=== PATIENT | male | born 1980 | race Caucasian/White ===

== ENCOUNTER 2017-02-07 12:13 | Inpatient (IN) | payer BC, OTHER ==
[~2017-02-07] VITALS: Ht 182.9 cm; Wt 95.3 kg
[~2017-02-07 12:13] MED LIST: ACET-2605 PO; ASCO-382 PO; Baclofen PO; CALC-880 PO; CLON0.1T14 PO; DICY20TA28 PO; DIVA500T4 PO; FLUO20CA36 PO; GABA100C PO; Gabapentin PO; HYDR-3895 PO; IBUP-1482 PO; IRON18TA PO; Ibuprofen PO; METH28OI2 TOP; NAPR500T3 PO; NEOM28.3 TP; OMEG-8 PO; TRAZ-147 PO
[2017-02-07] MEDS ORDERED: MAGNESIUM HYDROXIDE 30 ML LIQUID UDC PO PRN (13:15)
[2017-02-07] MEDS ORDERED: LORAZEPAM 2 MG/1 ML VIAL IM PRN (13:15)
[2017-02-07] MEDS ORDERED: MIRALAX 17 GM POWD.PACK PO PRN (13:15)
[2017-02-07] MEDS ORDERED: LORAZEPAM 1 MG TABLET PO PRN ×2 (13:15)
[2017-02-07] MEDS ORDERED: LOPERAMIDE HCL 2 MG CAPSULE PO PRN ×2 (13:15)
[2017-02-07] MEDS ORDERED: ONDANSETRON 4 MG/2 ML VIAL IM PRN (13:15)
[2017-02-07] MEDS ORDERED: DICYCLOMINE HCL 20 MG TABLET PO PRN (13:15)
[2017-02-07] MEDS ORDERED: diphenhydrAMINE 50 MG CAPSULE PO PRN (13:15)
[2017-02-07] MEDS ORDERED: THIAMINE HCL 200 MG/2 ML VIAL IM ONE (13:15)
[2017-02-07] MEDS ORDERED: MAG HYDROX/AL HYDROX/SIMETH 30 ML LIQUID UDC PO PRN (13:15)
[2017-02-07] MEDS ORDERED: ONDANSETRON ODT 4 MG TAB.RAPDIS SL PRN (13:15)
[2017-02-07 13:30] VITALS: BP 139/101
--- NOTE | 2017-02-07 13:30 | NUR ---
Initial Assessment, Admission Pt is a 36 y/o male, NKA, Full Code, new admission here for Etoh r/t Vodka 1125mL/d for 3.5 months with last use fo 375mL this morning, Benzo r/t Ativan 4mg PO daily with last use this morning for 3.5 months, Methamphetamine "$20 worth" daily for 3-4 weeks with last use 2 days ago, Marijuana 1 joint daily with last use today, [place] 10/325 pill x 5 pills PO with the last use 2 days ago, Subutex unknown dose with last use 2 days ago. Pt has been using since he last d/c'd from here at [facility] in 2016. Pt denies going to the [facility] for internal MD, no psychologist and no psychiatrist. HHx: Pt denies smoking, Left Ankle fusion 06/2016 with Chronic Pain, Anxiety and Depression. Pt states that he had a seizure approx. 1 week ago r/t alcohol w/d where he woke up in [facility] (known locations at this time). Pt states that he is homeless. Pt states that he detoxed at a facility that he couldn't recall the name of it in [place] in 2015 and has 4 months of sobriety last year from 01/2016 to 04/2016. FHx is noted the same. Pt has home medications brought with the reconciliations updated. Features symmetrical, PERRLA 3mm, no dizziness noted. Pt denies chest pain, V/S stable except BP and HR are elevated. No SOB present. Pt c/o N/V/D today before admission. Pt denies dysuria. Skin is flushed, moist with mild tremors & intact. CIWA 14. T. 98.6 HR 106 RR 18 BP 139/101 SpO2 100% RA 7/10 Left BLE pain.
[2017-02-07] MEDS ORDERED: DOCU-25 PO (13:35)
[2017-02-07] MEDS ORDERED: CYCL-343 PO (13:35)
[2017-02-07] MEDS ORDERED: FLUO20CA36 PO (13:35)
[2017-02-07] MEDS ORDERED: PRAZ1CAP5 PO (13:35)
--- NOTE | 2017-02-07 14:00 | NUR ---
Refused Labs Pt is in room resting in bed very agitated and irritable and refused the organic lab worker Blood Draw at admission; I explained that it is required and the tech is professional and very good and can use a butter-fly needed if needed, yet the pt refused.
--- NOTE | 2017-02-07 14:40 | NUR ---
PRN Medication Administration-Ativan Pt is resting in bed, flushed, clammy, very irritable with grimacing face and very anxious with HR 109 and BP 139/101, pt c/o nausea, ab cramping, mild FANG, and diarrhea before admission CIWA 13; PRN Clonidine 0.1mg, Ativan 1mg, Bentyl 20mg, Zofran 4mg SL, Motrin 400mg and Imodium 4mg given as ordered. Will reassess in 1H.
[2017-02-07] MEDS: CLONIDINE HCL 0.1 MG TABLET PO PRN (14:43)
[2017-02-07] MEDS: IBUPROFEN 600 MG TABLET PO PRN (14:43)
[2017-02-07] MEDS: GABAPENTIN 300 MG CAPSULE PO SCH ×2 (14:54→20:03)
--- NOTE | 2017-02-07 15:45 | NUR ---
Reassessment Pt is in room asleep and no non-verbal s/sx of w/d present; PRN's Clonidine, Ativan, Imodium, Motrin and Zofran are effective. Will cont. to monitor the pt.
[2017-02-07 16:03] LABS: *AMPHETAMINE, URINE NEGATIVE (NEGATIVE); *BARBITURATE, URINE NEGATIVE (NEGATIVE); *CANNABINOID, URINE POSITIVE (NEGATIVE); *COCCAINE, URINE NEGATIVE (NEGATIVE); *OPIATE, URINE NEGATIVE (NEGATIVE); *PHENCYCLIDINE SCREEN,URINE NEGATIVE (NEGATIVE)
[2017-02-07 17:00] VITALS: BP 132/92
--- NOTE | 2017-02-07 18:41 | NUR ---
START OF SHIFT NOTE: Patient endorsed by day shift nurse in stable condition. Patient is a 36 year old male admitted to [facility] on 02/07/17 for Benzodiazepines, ETOH, and Opiate Dependence, placed on 5 Day Ativan Taper since 02/08/17. Patient tolerated well. NKA, Regular Diet, Full Code, Seizures and Fall Precautions. Patent reports History of Seizure "one week ago r/t withdrawal s/s". PMH: HTN, Anxiety, Depression, Substance Abuse, Left ankle infusion on 2015 with chronic pain. Patient reports that he is recently has "third time on detox/treatment". Previously, he has detox/treatment at "[place] [facility] in on August,". "[facility] one week ago r/t ETOH withdrawal". "[facility]" on November,". Substance Use History: Patient reports he used vodka " during last three and half months 1,125 ml every day. Last used 375 ml on 02/07/17 ". Ativan PO "4 mg every day during last three and half months. Last used 4 mg PO on 02/07/17". Methamphetamine PO "$20 dollars worth one day for 3-4 weeks. Last used 2 days ago, on 02/05/17". [place] PO " 10/325 mg pills x 5 pills every day. Last used 5 pills on 02/05/17". Marijuana "smoke 1 joint every day. Last used on 02/07/17 1 joint". Subutex PO " Occasional use unknown dose. Last used unknown dose 2 days ago, on 02/05/17. Upon endorsement, at 18:41, patient is in his room alert and oriented x4, speech is soft and clear. CIWA 9: Patient c/o anxiety, tremors, body aches, nervousness, agitation, headache, body aches, and sweats. Patient denies N/V, and diarrhea. Patient denies SI/HI. VS WNL. MRSA collected from both nares and sent to lab. Patient remains compliant with treatment plan, medications, and diet regimen. Patient unable attended groups activities r/t withdrawal s/s. Encourage to fluids intake, as tolerated. Breathing is even and unlabored. Patient denies chest pain and SOB. Lungs Sounds are clear bilaterally. Bowel Sounds are active in all 4 quadrants. Last bowel Movement was "today, in the morning". Skin is intake, warm and dry. All needs met. Safety measures in the place by hospital policy: bed in the lowest position, and locked, padded bed rails up x2. Will continue to monitor closely.
--- NOTE | 2017-02-07 18:41 | NUR ---
End of the Shift Report to the night nurse: Pt is new admission here for Etoh and Benzo r/t Ativan; 5 day Ativan taper starting 02/08/17 with PRN Ativan ordered and given at 1440 with CIWA 13-14. PRNs: Ativan 1mg Clonidine 0.1mg given for anxiety & BP 139/101,HR 109, Zofran, Motrin & Imodium 4 mg. HHx: Anxiety, Depression, Non-Smoker, Left LE infusion with Chronic Pain. V/S stable s/p Ativan given. Skin is intact. Last CIWA 4. Pt refused blood draw for labs so endorsed to night nurse to f/u with blood draw. Pt is homeless and was at [facility] last week so endorsed to night nurse for MRSA swab and seizure precautions.
[2017-02-07 20:00] VITALS: BP 141/104
--- NOTE | 2017-02-07 20:03 | NUR ---
PRN ATIVAN 2 MG 2 TABS PO ADMINISTRATION CIWA 16: Patient' anxious, agitated, obviously sweating, pt's nervousness, body aches, headache, stomach cramps, tremors, and restlessness. Patient denies N/V, and diarrhea. Doctor Jerman Kong MD aware. PRN Ativan PO 2 mg 2 tabs administrated as ordered with full glass of water. Patient tolerated well. Will reassess in one hour. All needs met. Safety measures in the place by hospital policy: Call light within reach, bed locked and in lowest position, padded rails up x2. Will continue to monitor closely.
--- NOTE | 2017-02-07 20:03 | NUR ---
PRN BENADRYL PO ADMINISTRATION Patient c/o insomnia and ask aid. Upon assessment, CIWA 16: Patient' anxious, agitated, obviously sweating, pt's nervousness, body aches, headache, stomach cramps, tremors, and restlessness. Patient denies N/V, and diarrhea. Doctor Jerman Kong MD aware for patient condition.PRN Benadryl PO and PRN Ativan PO 2 mg 2 tabs administrated as ordered with full glass of water. Patient tolerated well. Will reassess in one hour. All needs met. Safety measures in the place by hospital policy: Call light within reach, bed locked and in lowest position, padded rails up x2. Will continue to monitor closely.
[2017-02-07 20:30] VITALS: BP 138/89
--- NOTE | 2017-02-07 21:03 | NUR ---
RE - ASSESSMENT Patient sleeping. VS at 20:30: BP: 138/89, HR: 87, Room Air O2 Sat 97%. RR: 17, T: 98'1. Breathing is unlabored and even. PRN Ativan PO and PRN Benadryl PO were effective. All needs met. Safety measures in the place by hospital policy: bed in the lowest position, and locked, bed rails up x2. Will continue to monitor closely.
[2017-02-08] VITALS (7 sets, daily range): BP systolic 0–126; BP diastolic 0–86
--- NOTE | 2017-02-08 | NUR ---
VS REFUSED AND CIWA/COWS DEFERRED Patient refused to be woken up for 00:00 VS. CIWA/COWS deferred d/t patient sleeping to assess while patient is awake. Safety measures on place by hospital policy: Call light within reach; Bed in lowest position and locked; padded side rails up x2. Will continue to monitor.
--- NOTE | 2017-02-08 07:00 | NUR ---
End of the Shift Report from the night nurse with update: Pt is new admission here for Etoh and Benzo r/t Ativan; 5 day Ativan taper starting 02/08/17. Pt is a full code, regular diet, NKA, fall and seizure precautions carried out as ordered. HHx: Anxiety, Depression, Non-Smoker, Left LE infusion with Chronic Pain. V/S stable. Skin is intact. PRN Ativan 2 mg given last night with CIWA 16 r/t anxiety. Will f/u if MRSA swab obtained. Will f/u if pt is compliant and cooperative with blood draw for labs during my shift. Last CIWA 6. Pt is asleep in room. Will cont. to monitor the pt.
--- NOTE | 2017-02-08 07:20 | NUR ---
END OF SHIFT NOTE: Patient endorsed to day shift nurse in stable condition. Report given. Patient is a 36 year old male admitted to [facility] on 02/07/17 for Benzodiazepines, ETOH, and Opiate Dependence, placed on PRN Ativan PO on 02/07/17. 5 Day Ativan Taper ordered first dose on 02/08/17. Patient tolerated well to PRN Medications. NKA, Regular Diet, Full Code, Seizures and Fall Precautions. Patent reports History of Seizure "one week ago r/t withdrawal s/s". PMH: HTN, Anxiety, Depression, Substance Abuse, Left ankle infusion on 2015 with chronic pain. Substance Use History: ETOH/ Vodka Oral: " during last three and half months 1,125 ml every day. Last used 375 ml on 02/07/17 ". Ativan PO "4 mg every day during last three and half months. Last used 4 mg PO on 02/07/17". Methamphetamine PO : "$20 dollars worth one day for 3-4 weeks. Last used 2 days ago, on 02/05/17". [place] PO " 10/325 mg pills x 5 pills every day. Last used 5 pills on 02/05/17". Marijuana "smoke 1 joint every day. Last used on 02/07/17 1 joint". Subutex PO "Occasional use unknown dose". Last used "unknown dose 2 days ago, on 02/05/17". Last CIWA at 0400: decreased from 16 to 7. Patient presented with withdrawal s/s of anxiety, tremors, body aches, nervousness, agitation, headache, body aches, and sweats. Patient denies N/V, and diarrhea. Patient denies SI/HI. VS at 04:00: T: 98'1; BP: 108/78; HR: 86; RR: 16; Room Air O2 SAT: 99%. Patient c/o body aches "02/17". Patient remains compliant with treatment plan, medications, and diet regimen. Patient unable attended groups activities r/t withdrawal s/s. Encourage to fluids intake, as tolerated. Breathing is even and unlabored. Patient denies chest pain and SOB. Last bowel Movement was "02/07/17, in the morning". Patient slept 9 hours, intake 800 ml, voided x1. Skin is intake, warm and moist by touch. All needs met. Safety measures in the place by hospital policy: bed in the lowest position, and locked, padded bed rails up x2.
[2017-02-08] MEDS: MULTIVITAMINS,THERAPEUTIC TABLET PO SCH (08:49)
[2017-02-08] MEDS: LORAZEPAM 1 MG TABLET PO SCH ×4 (08:49→20:32)
[2017-02-08] MEDS: FOLIC ACID 1 MG TABLET PO SCH (08:50)
[2017-02-08] MEDS: THIAMINE HCL 100 MG TABLET PO SCH (08:50)
[2017-02-08] MEDS: GABAPENTIN 300 MG CAPSULE PO SCH ×3 (08:50→20:31)
[2017-02-08] MEDS: DOCUSATE SODIUM 250 MG CAPSULE PO SCH (08:53)
[2017-02-08] MEDS ORDERED: TUBERCULIN,PURIF.PROT.DERIV. 5 TU/0.1 ML TEST ID ONE (09:00)
[2017-02-08] MEDS ORDERED: 5 DAY TAPER OF LORAZEPAM -SERENITY PROTOCOL PO PRN (09:00)
[2017-02-08] MEDS: METHOCARBAMOL 750 MG TABLET PO PRN (13:18)
[2017-02-08] MEDS: HYDROXYZINE PAMOATE 25 MG CAPSULE PO PRN (13:18)
[2017-02-08] MEDS: IBUPROFEN 600 MG TABLET PO PRN (13:18)
[2017-02-08] MEDS: CLONIDINE HCL 0.1 MG TABLET PO PRN (13:19)
--- NOTE | 2017-02-08 13:31 | NUR ---
PRN Medication Administration Pt is w/d in room anxious with irritability, flushed, tremors felt, c/o muscle tension, nausea and pain 7/10 generalized, CIWA 7, V/S stable; PRN's: Clonidine 0.1mg, Zofran 4mg SL, Robaxin 750mg, Vistaril 50mg and Garsia 600mg PO all given as ordered with Dr. Kong present. I notified Dr. Kong of pt being uncooperative with care and refused the PPD and CXR ordered, no new orders or recommendations. Will reassess in 1H.
[2017-02-08] MEDS ORDERED: BACL20TA PO (14:27)
--- NOTE | 2017-02-08 14:28 | NUR ---
Therapist informed client of group times. Client stated he may not go to groups today because he is tired.
[2017-02-08] MEDS ORDERED: NAPR500T3 PO (14:29)
--- NOTE | 2017-02-08 14:30 | NUR ---
Reassessment Pt is resting in room with improved mannerism and attitude while asking pt about PRN medication reassessment he states "thank-you very much" at the end of each of my question and denies pain, nausea and muscle tension; PRN Clonidine, Vistaril, Zofran, Motrin and Robaxin are effective. Will cont. to monitor the pt.
[2017-02-08] MEDS ORDERED: METH28OI2 TP (14:44)
[2017-02-08] MEDS: FLUOXETINE HCL 20 MG CAPSULE PO SCH (15:08)
[2017-02-08] MEDS: QUETIAPINE FUMARATE 25 MG TABLET PO SCH ×2 (15:08→18:09)
--- NOTE | 2017-02-08 15:14 | NUR ---
New Orders-Contact Isolation MRSA New Results for MRSA swab 02/07 with positive MRSA in the nares; notified Dr. Sarah, OLGA, DON and new orders for Contact Isolation Precautions with new orders for Bactroban topical Atbx to start at 2100pm. New Orders for Psych medications Seroquel 25mg PO tid, Prozac reconciled 20mg PO daily, & Trazodone 100mg PO HS given as ordered. Will cont. to monitor the pt. Addendum: 02/08/17 at 1525 by DREW SMITH RN New Order for Depakote 1g PO HS
--- NOTE | 2017-02-08 19:21 | NUR ---
End of the Shift Report to the night nurse with update: Pt is new admission here for Etoh and Benzo r/t Ativan; 5 day Ativan taper starting 02/08/17. Pt is a full code, regular diet, NKA, fall and seizure precautions carried out as ordered. HHx: Anxiety, Depression, Non-Smoker, Left LE infusion with Chronic Pain. Pt was very uncooperative with the POC and medication regimen during my shift and refused to have labs drawn again with [facility] notified and psychiatrist of pt's manic episodes, yelling and very anxious; new orders for Seroquel, trazodone, and reconciled Prozac by Dr. Sawyer. V/S stable. Skin is intact. New results for +MRSA Nares for new orders for Contact isolations and topical Bactroban ordered to start 2100p tonight, pt refused Colace. Pt refused PPD so CXR obtained and endorsed to night nurse to obtain new results. PRN Clonidine, Zofran, Motrin, Robaxin, Vistaril given at 1300H. Last CIWA 3.
--- NOTE | 2017-02-08 19:21 | NUR ---
START OF SHIFT NOTE: Patient endorsed by day shift nurse in stable condition. Report received. Patient is a 36 year old male admitted to [facility] on 02/07/17 for Benzodiazepines, ETOH, and Opiate Dependence, placed on PRN Ativan PO on 02/07/17. 5 Day Ativan Taper ordered first dose on 02/08/17. Patient tolerated well . NKA, Regular Diet, Full Code, Seizures and Fall Precautions. Patent reports History of Seizure "one week ago r/t withdrawal s/s". PMH: HTN, Anxiety, Depression, Substance Abuse, Left ankle infusion on 2015 with chronic pain. Substance Use History: ETOH/ Vodka Oral: " during last three and half months 1,125 ml every day. Last used 375 ml on 02/07/17 ". Ativan PO "4 mg every day during last three and half months. Last used 4 mg PO on 02/07/17". Methamphetamine PO : "$20 dollars worth one day for 3-4 weeks. Last used 2 days ago, on 02/05/17". [place] PO " 10/325 mg pills x 5 pills every day. Last used 5 pills on 02/05/17". Marijuana "smoke 1 joint every day. Last used on 02/07/17 1 joint". Subutex PO "Occasional use unknown dose". Last used "unknown dose 2 days ago, on 02/05/17". Last CIWA 3@ 17:00 by day shift nurse report, decreased from 7. Patient presented with withdrawal s/s of anxiety, tremors, mild nausea, body aches, nervousness, agitation, mild headache, body aches, and sweats. Patient denies vomiting and diarrhea. Patient denies SI/HI. VS remains stable during day shift. Patient c/o body aches "02/17". Patient remains compliant with treatment plan, medications, and diet regimen. Patient on MRSA isolation since 02/08/2017. Patient educated about hand washing techniques. Patient returned his knowledge back by demonstrating hand washing techniques. Patient encouraged to attend groups activities r/t withdrawal s/s. Encourage to fluids intake, as tolerated. Breathing is even and unlabored. Patient denies chest pain and SOB. Last bowel Movement was "02/07/17, in the morning". Patient slept 9 hours, intake 800 ml, voided x1. Skin is intake, warm and moist by touch. All needs met. Safety measures in the place by hospital policy: bed in the lowest position, and locked, padded bed rails up x2.
[2017-02-08] MEDS: MUPIROCIN 2% OINT 22 GM TUBE NS SCH (20:29)
[2017-02-08] MEDS: TRAZODONE 100 MG TABLET PO SCH (20:31)
[2017-02-08] MEDS: DIVALPROEX ER 500 MG TAB.SR.24H PO SCH (20:32)
[2017-02-09] VITALS: BP 91/61
--- NOTE | 2017-02-09 04:00 | NUR ---
VS REFUSED AND CIWA/COWS DEFERRED Patient refused to be woken up for 04:00 VS. CIWA/COWS deferred d/t patient sleeping to assess while patient is awake. Safety measures on place by hospital policy: Call light within reach, bed in lowest position and locked, padded side rails up x2. Will continue to monitor
--- NOTE | 2017-02-09 07:06 | NUR ---
END OF SHIFT NOTE Patient is a 36 year old male admitted to [facility] on 02/07/17 for Benzodiazepines, ETOH, Opiate, and Methamphetamine Dependence. Patient is on 5 Day Ativan Taper since 02/08/17, tolerated well . Patient has NKA, is on Regular Diet, and is Full Code status. Patient is on Seizure and Fall Precautions. Patient is on isolation for MRSA Nares. PMH: HTN, Seizure, Anxiety, Depression, Left ankle fusion in 2016 with continuing chronic pain. Last CIWA 4 @ 0000. Patient refused to be woken up for 0400 VS. CIWA deferred d/t patient sleeping. During shift patient presented with withdrawal s/s of anxiety, agitation, nervousness, tremors that can be felt, very mild headache, body aches, and sweats. VS WNL. Patient remains compliant with treatment plan, medications, and diet regimen. Patient encouraged to attend groups activities. Encourage fluid intake, as tolerated. Respirations even and unlabored. Patient slept 9 hours, intake 850 ml. Skin is intact, warm and dry to touch. All needs met. Safety measures in the place, bed locked and in lowest position with padded side rails up x2.
--- NOTE | 2017-02-09 07:15 | NUR ---
Start of Shift Patient Received from police shift commander nurse. Patient is a 36 year old male admitted to [facility] on 02/07/17 for Benzodiazepines, ETOH, Opiate, and Methamphetamine Dependence. Pt is full code regular diet, continues on fall and seizure precautions denies any food or drug allergies. Patient is on 5 Day Ativan Taper since 02/08/17, tolerated well . Patient is on isolation for MRSA of the Nares. PMH: HTN, Seizure, Anxiety, Depression, Left ankle fusion in 2016 with continuing chronic pain. Pts last CIWA 4 which was taken at 0400. Pt received no PRN medications last night. Pt is currently in room laying down in bed eyes closed resting, with even unlabored breathing at 18. Upon assessment pt c/o pain in his right leg rating it 7/10. Pt slept a total of 9 hours last night. All safety measures in place per hospital policy. Bed in lowest position, side rails up x2, call-light within reach. Will continue to monitor and provide support.
[2017-02-09 08:00] VITALS: BP 108/67
[2017-02-09] MEDS: LORAZEPAM 1 MG TABLET PO SCH ×3 (09:23→20:15)
[2017-02-09] MEDS: DOCUSATE SODIUM 250 MG CAPSULE PO SCH (09:23)
[2017-02-09] MEDS: MUPIROCIN 2% OINT 22 GM TUBE NS SCH ×2 (09:23→20:14)
[2017-02-09] MEDS: MULTIVITAMINS,THERAPEUTIC TABLET PO SCH (09:23)
[2017-02-09] MEDS: FOLIC ACID 1 MG TABLET PO SCH (09:24)
[2017-02-09] MEDS: QUETIAPINE FUMARATE 25 MG TABLET PO SCH ×3 (09:24→17:12)
[2017-02-09] MEDS: ACETAMINOPHEN 325 MG TABLET PO PRN (09:24)
[2017-02-09] MEDS: FLUOXETINE HCL 20 MG CAPSULE PO SCH (09:24)
[2017-02-09] MEDS: THIAMINE HCL 100 MG TABLET PO SCH (09:24)
[2017-02-09] MEDS: GABAPENTIN 300 MG CAPSULE PO SCH ×3 (09:24→20:16)
--- NOTE | 2017-02-09 09:29 | NUR ---
PRN MEDICATION Pt c/o of generalized pain and leg pain rating it 7/10 requested something for relief, non-pharmacological techniques interventions provided x3 and were not effective. PRN Tylenol 650mg administered PO, educated pt about s/e of medication and when to contact nurse. all needs met, all safety measures in place, will continue to monitor.
--- NOTE | 2017-02-09 10:30 | NUR ---
PRN REASSESSMENT Upon reassessment medication noted to be effective pt reported a decrease in pain to 3/10. Instructed pt to contact nurse if pain reoccurred. All needs met, all safety measures in place will continue to monitor.
[2017-02-09 12:00] VITALS: BP 111/94
[2017-02-09 16:00] VITALS: BP 124/92
--- NOTE | 2017-02-09 19:02 | NUR ---
End of Shift Report given. Patient is a 36 year old male admitted to [facility] on 02/07/17 for Benzodiazepines, ETOH, Opiate, and Methamphetamine Dependence. Pt is full code regular diet, continues on fall and seizure precautions denies any food or drug allergies. Patient is on 5 Day Ativan Taper, tolerated well . Patient is on isolation for MRSA of the Nares. Pts last CIWA was a 5 which was taken at 1600. Pt received PRN Tylenol 650mg PO, medication effective. Pt remains compliant with the treatment plan. Patient encouraged adequate PO fluid intake as tolerated. Upon assessment patient presented with mild anxiety, and barely sweating with. Detox medication effective at reducing withdrawal symptoms. Patient encouraged to attend group therapies/sessions to learn new coping skills to recent relapse, patient denies SI/HI. Pt ate all of his meals his total fluid intake was 1855ml with 1void and no bowel movement. Safety measures in place. Call light kept within reach. Patient endorsed to shift superintendent caustic cresylate nurse, all pertinent information discussed.
--- NOTE | 2017-02-09 19:05 | NUR ---
START OF SHIFT NOTE : Patient is a 36 year old male admitted to [facility] on 02/07/17 for Benzodiazepines, ETOH, Opiate, and Methamphetamine Dependence. Pt is full code regular diet, continues on fall and seizure precautions denies any food or drug allergies. Patient is on 5 Day Ativan Taper since 02/08/17, tolerated well . Patient is on isolation for MRSA of the Nares. PMH: HTN, Seizure, Anxiety, Depression, Left ankle fusion in 2016 with continuing chronic pain. Pts last CIWA 5 which was taken at 1600. Upon assessment pt c/o pain in his right leg rating it 2/10. All safety measures in place per hospital policy. Bed in lowest position, side rails up x2, call-light within reach. Will continue to monitor and provide support.
[2017-02-09 20:00] VITALS: BP 114/83
[2017-02-09] MEDS: TRAZODONE 100 MG TABLET PO SCH (20:15)
[2017-02-09] MEDS: DIVALPROEX ER 500 MG TAB.SR.24H PO SCH (20:15)
--- NOTE | 2017-02-10 06:44 | NUR ---
END OF SHIFT NOTE : Patient is a 36 year old male admitted to [facility] on 02/07/17 for Benzodiazepines, ETOH, Opiate, and Methamphetamine Dependence. Pt is full code regular diet, continues on fall and seizure precautions denies any food or drug allergies. Patient is on 5 Day Ativan Taper since 02/08/17, tolerated well . Patient is on isolation for MRSA of the Nares. PMH: HTN, Seizure, Anxiety, Depression, Left ankle fusion in 2016 with continuing chronic pain. Pts last CIWA 5 which was taken at 1600. Upon assessment pt c/o pain in his right leg rating it 2/10. Pt remains compliant with the treatment plan. No PRNs were given during my shift. V/S remain WNL. RR=16, even and unlabored, lungs clear upon auscultation, abdomen soft and non- distended. Pt denies nausea, vomiting and diarrhea. LAST CIWA 3 at 0400 , INTAKE=1,200 ml, voided x 1, slept 8 hours.All safety measures in place per hospital policy. Bed in lowest position, side rails up x2, call-light within reach. Will continue to monitor and provide support.
--- NOTE | 2017-02-10 07:30 | NUR ---
START OF SHIFT Pt 36 y/o male admitted for ETOH and benzo. Pt received in room with eyes closed resting, but easily arousable to name. Pt alert and oriented to name, place, and time. Respirations even unlabored. Pt did not want to be disturbed at this time. It was reported that pt slept for 8 hours last night. Pt is currently on a 5 day ativan taper. Bed on lowest position with side rails x2 up for safety. Call light within reach. No distress noted at this time.
[2017-02-10 08:00] VITALS: BP 111/76
[2017-02-10 08:02] VITALS: BP 111/76
[2017-02-10] MEDS: DOCUSATE SODIUM 250 MG CAPSULE PO SCH (08:41)
[2017-02-10] MEDS: LORAZEPAM 1 MG TABLET PO SCH ×4 (08:41→20:44)
[2017-02-10] MEDS: GABAPENTIN 300 MG CAPSULE PO SCH ×3 (08:41→20:44)
[2017-02-10] MEDS: MULTIVITAMINS,THERAPEUTIC TABLET PO SCH (08:41)
[2017-02-10] MEDS: FLUOXETINE HCL 20 MG CAPSULE PO SCH (08:41)
[2017-02-10] MEDS: QUETIAPINE FUMARATE 25 MG TABLET PO SCH ×3 (08:41→16:17)
[2017-02-10] MEDS: MUPIROCIN 2% OINT 22 GM TUBE NS SCH ×2 (08:42→20:43)
[2017-02-10] MEDS: FOLIC ACID 1 MG TABLET PO SCH (08:42)
[2017-02-10] MEDS: THIAMINE HCL 100 MG TABLET PO SCH (08:42)
--- NOTE | 2017-02-10 10:58 | NUR ---
NSG ENTRY Pt observed in group activity.
[2017-02-10 12:00] VITALS: BP 122/83
[2017-02-10 16:00] VITALS: BP 136/87
--- NOTE | 2017-02-10 18:13 | NUR ---
END OF SHIFT Pt 36 y/o male admitted for etoh and benzo. Pt alert and orientd to name, place, and time. Perrla. Skin warm and slightly moist to touch. Respirations even and unlabored. Bilateral hand tremors noted slightly. Pt observed mostly isolative to room today. Pt did attend group activity. Pt still remains on contact isolative for positive MRSA of nares. Pt was seen by Dr. Kong today. Pt medication compliant and tolerated well. No ASE noted. Bed on lowest position with side rails x2 up for safety. Call light within reach. No distress noted at this time.
--- NOTE | 2017-02-10 19:30 | NUR ---
START OF SHIFT NOTE : Patient is a 36 year old male admitted to [facility] on 02/07/17 for Benzodiazepines, ETOH, Opiate, and Methamphetamine Dependence. Pt is full code regular diet, continues on fall and seizure precautions denies any food or drug allergies. Patient is on 5 Day Ativan Taper since 02/08/17, tolerated well . Patient is on isolation for MRSA of the Nares. PMH: HTN, Seizure, Anxiety, Depression, Left ankle fusion in 2016 with continuing chronic pain. Pts last CIWA 2 which was taken at 1930. All safety measures in place per hospital policy. Bed in lowest position, side rails up x2, call-light within reach. Will continue to monitor and provide support.
[2017-02-10 20:00] VITALS: BP 119/86
[2017-02-10] MEDS: DIVALPROEX ER 500 MG TAB.SR.24H PO SCH (20:44)
[2017-02-10] MEDS: TRAZODONE 100 MG TABLET PO SCH (20:44)
--- NOTE | 2017-02-11 06:49 | NUR ---
END OF SHIFT NOTE : Patient is a 36 year old male admitted to [facility] on 02/07/17 for Benzodiazepines, ETOH, Opiate, and Methamphetamine Dependence. Pt is full code regular diet, continues on fall and seizure precautions denies any food or drug allergies. Patient is on 5 Day Ativan Taper since 02/08/17, tolerated well . Patient is on isolation for MRSA of the Nares. PMH: HTN, Seizure, Anxiety, Depression, Left ankle fusion in 2016 with continuing chronic pain. Pt remains compliant with the treatment plan. No PRNs were given during my shift. V/S remain WNL. RR=16, even and unlabored, lungs clear upon auscultation, abdomen soft and non- distended. Pt denies nausea, vomiting and diarrhea. LAST CIWA= 2 at 0400 , INTAKE= 1091 ml, voided x 2, slept 8 hours. Safety measures in place : bed on lowest position with side rails x2 up for safety, call light within reach. Will continue to monitor closely and offer help.
[2017-02-11 08:00] VITALS: BP 113/76
--- NOTE | 2017-02-11 08:02 | NUR ---
START OF SHIFT NOTE received patient AOX4. patient sitting up in bed. Stated,"slept good and feel ok". patient slept 8 hours last night. Last CIWA 1 per night nurse. No PRNs given last night. All safety measures in place call light within reach, bed in lowest position, and wheels locked. 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 Patient is on a 5 day Ativan taper started on February 08. Will encourage patient to attend group and activities. Will continue to monitor patient.
[2017-02-11] MEDS: MULTIVITAMINS,THERAPEUTIC TABLET PO SCH (08:52)
[2017-02-11] MEDS: DOCUSATE SODIUM 250 MG CAPSULE PO SCH (08:52)
[2017-02-11] MEDS: THIAMINE HCL 100 MG TABLET PO SCH (08:52)
[2017-02-11] MEDS: MUPIROCIN 2% OINT 22 GM TUBE NS SCH ×2 (08:52→20:11)
[2017-02-11] MEDS: FOLIC ACID 1 MG TABLET PO SCH (08:52)
[2017-02-11] MEDS: GABAPENTIN 300 MG CAPSULE PO SCH ×3 (08:52→20:11)
[2017-02-11] MEDS: FLUOXETINE HCL 20 MG CAPSULE PO SCH (08:52)
[2017-02-11] MEDS: QUETIAPINE FUMARATE 25 MG TABLET PO SCH ×3 (08:52→16:29)
[2017-02-11] MEDS: LORAZEPAM 1 MG TABLET PO SCH ×3 (08:53→20:10)
[2017-02-11 12:00] VITALS: BP 141/94
[2017-02-11] MEDS: CLONIDINE HCL 0.1 MG TABLET PO PRN (12:26)
--- NOTE | 2017-02-11 12:29 | NUR ---
PRN MED Clonidine given for BP 141/94 HR 114. Patient states,"feeling mildly anxious". Will continue to monitor.
--- NOTE | 2017-02-11 13:05 | NUR ---
PRN REASSESSMENT BP 125/84. He states he feels less anxious after the medication and a long shower. Will monitor.
[2017-02-11 16:00] VITALS: BP 141/92
[2017-02-11] MEDS: HYDROXYZINE PAMOATE 25 MG CAPSULE PO PRN (16:44)
--- NOTE | 2017-02-11 16:45 | NUR ---
PRN MED Vistaril given. Patient experiencing anxiety. stated,"heart pounding".
--- NOTE | 2017-02-11 17:20 | NUR ---
PRN REASSESSMENT Vistaril given. patient states anxiety has decreased. Vitals WNL
--- NOTE | 2017-02-11 18:39 | NUR ---
START OF SHIFT NOTE: Patient endorsed by day shift nurse in stable condition. Patient is a 36 year old male admitted to [facility] on 02/07/17 for Benzodiazepines, ETOH, and Opiate Dependence. Patient is on 5 Day on 5 Day Ativan Taper since 02/08/17, tolerated well. Patient has NKA, is on Regular Diet, and is Full Code status. Patient is on Seizure and Fall Precautions. PMH: HTN, Anxiety, Depression, History of Seizure r/t withdrawal, Substance Abuse, Left ankle infusion on 2015 with chronic pain. Upon endorsement, at 1839, patient is in his room alert and oriented x4, speech is soft and clear. CIWA 8: Patient c/o anxiety, tremors, body aches, nervousness, agitation, headache, body aches, and sweats. Patient denies N/V, and diarrhea. Patient denies SI/HI. VS WNL. MRSA isolation since 02/08/17. Patient remains compliant with treatment plan, medications, and diet regimen. Patient attended groups activities. Encourage to fluids intake, as tolerated. Breathing is even and unlabored. Patient denies chest pain and SOB. Lungs Sounds are clear bilaterally. Bowel Sounds are active in all 4 quadrants. Last bowel Movement was "today, 02/11/17, in the morning". Skin is intake, warm and dry. All needs met. Safety measures in the place. Call light within reach, bed in the lowest position, and locked, padded bed rails up x2. Will continue to monitor closely.
--- NOTE | 2017-02-11 18:39 | NUR ---
END OF SHIFT NOTE Patient is on a 5 day Ativan taper started February 08. Patient remains on isolation precautions for MRSA of the nares. Vistaril and Clonidine given PRN for anxiety and elevated blood pressure 141/94 HR114. PRN med were effective. Last CIWA 2. All safety measures in place, call light within reach, bed in lowest position, and wheels locked. All needs have been met. Will pass shift report to oncoming nurse.
[2017-02-11 20:00] VITALS: BP 126/91
[2017-02-11] MEDS: TRAZODONE 100 MG TABLET PO SCH (20:10)
[2017-02-11] MEDS: DIVALPROEX ER 500 MG TAB.SR.24H PO SCH (20:12)
[2017-02-12] VITALS: BP 112/78
--- NOTE | 2017-02-12 04:00 | NUR ---
VS REFUSED AND CIWA/COWS DEFERRED Patient refused to be woken up for 0400 VS. CIWA/COWS deferred d/t patient sleeping to assess while patient is awake. Safety measures on place by hospital policy: Call light within reach; Bed in lowest position and locked; padded side rails up x2. Will continue to monitor.
--- NOTE | 2017-02-12 07:06 | NUR ---
END OF SHIFT NOTE : Patient is a 36 year old male admitted to [facility] on 02/07/17 for Benzodiazepines, ETOH, and Opiate Dependence. Patient is on 5 Day Ativan Taper since 02/08/17, tolerated well. Patient has NKA, is on Regular Diet, and is Full Code status. Patient is on Seizure and Fall Precautions. MRSA isolation since 02/08/17. PMH: HTN, Anxiety, Depression, History of Seizure r/t withdrawal, Substance Abuse, Left ankle infusion on 2015 with chronic pain. Last CIWA 4, COWS 5 at 0000. Patient reported the following symptoms of withdrawal: anxiety, agitation, nervousness, tremors that can be felt, diaphoresis, restless legs, and fatigue. Patient remains compliant with treatment plan, medications, and diet regimen. Patient refused to be woken up for 0400 VS. CIWA/COWS deferred d/t patient sleeping to assess while patient is awake. Respirations even and unlabored. Skin is intact, warm and dry by touch. Patient slept 8 hours, intake 1300 ml, voided x 2. Skin is intake, warm and dry. Patient slept 5 hours, intake 1300 ml, voided x3. All needs met. Safety measures in the place. Call light within reach, bed in the lowest position, and locked, padded bed rails up x2. Addendum: 02/13/17 at 0235 by GALE GODFREY RN Patient slept 5 hours, intake 1300 ml, voided x3.
--- NOTE | 2017-02-12 07:07 | NUR ---
Start of Shift Endorsement received from nightshift nurse. Pt is a 36 y/o male admitted for alcohol and Ativan dependence. Pt has been placed on a 5 day Ativan taper. PT is tolerating the taper well AEB CIWA 3 at midnight. Pt did not receive any PRN medications during nightshift. PT reports sleeping 6 hours during the night. VS WNL. Full Code. PT is alert and oriented x4. Pt is in STABLE condition at this time. Remains compliant with medication and diet regimen. All needs have been met, All safety measures in place per hospital policy. Bed in lowest position, side rails up x2, call-light within reach. Will continue to monitor
[2017-02-12 08:00] VITALS: BP 112/72
[2017-02-12] MEDS: MULTIVITAMINS,THERAPEUTIC TABLET PO SCH (08:52)
[2017-02-12] MEDS: QUETIAPINE FUMARATE 25 MG TABLET PO SCH ×3 (08:52→17:16)
[2017-02-12] MEDS: DOCUSATE SODIUM 250 MG CAPSULE PO SCH (08:52)
[2017-02-12] MEDS: FLUOXETINE HCL 20 MG CAPSULE PO SCH (08:52)
[2017-02-12] MEDS: GABAPENTIN 300 MG CAPSULE PO SCH ×3 (08:52→20:18)
[2017-02-12] MEDS: FOLIC ACID 1 MG TABLET PO SCH (08:52)
[2017-02-12] MEDS: LORAZEPAM 1 MG TABLET PO SCH ×2 (08:52→20:18)
[2017-02-12] MEDS: THIAMINE HCL 100 MG TABLET PO SCH (08:52)
[2017-02-12] MEDS: MUPIROCIN 2% OINT 22 GM TUBE NS SCH ×2 (09:34→20:22)
[2017-02-12 12:00] VITALS: BP 130/92
[2017-02-12 16:00] VITALS: BP 122/75
--- NOTE | 2017-02-12 19:02 | NUR ---
End of Shift Endorsement given to nightshift nurse. Pt is a 36 y/o male admitted for alcohol and Ativan dependence. Pt has been placed on a 5 day Ativan taper. PT is tolerating the taper well AEB CIWA 5 at 1600 Pt did not receive any PRN medications. Pt is on contact isolation for positive MRSA of nares. Pt has been educated on MRSA, encouraged pt to wash hands prior to leaving his room. Educated pt on s/e of medications. Intake: 1200ml, Void 5, BM x1. VS WNL. Full Code. PT is alert and oriented x4. Pt is in STABLE condition at this time. Remains compliant with medication and diet regimen. All needs have been met, All safety measures in place per hospital policy. Bed in lowest position, side rails up x2, call-light within reach. Will continue to monitor
--- NOTE | 2017-02-12 19:02 | NUR ---
START OF SHIFT NOTE: Patient endorsed by day shift nurse. Patient is a 36 year old male admitted to [facility] on 02/07/17 for Benzodiazepines, Alcohol, and Opiate Dependence. Patient is on 5 Day on 5 Day Ativan Taper since 02/08/17, tolerated well. Patient has NKA, is on Regular Diet, and is Full Code status. Patient is on Seizure and Fall Precautions. PMH: HTN, Anxiety, Depression, History of Seizure r/t withdrawal, Substance Abuse, Left ankle infusion on 2015 with chronic pain. Last COWS 8, CIWA 7 at 1701: patient presented with withdrawal s/s of anxiety, agitation, pupil size larger than normal for room light, tremors, nervousness, mild headache, yawning, body aches, and sweats. Patient denies N/V, and diarrhea. Patient denies SI/HI. VS WNL. MRSA for nares isolation since 02/08/17. Patient educated for prevention MRSA infection, such as clean ,his hands, often as well, and asked to staying in his hospital room as much as possible, for not going to common area, such as cafeteria. Patient remains compliant with treatment plan, medications, and diet regimen. Patient attended groups activities. Encourage to fluids intake, as tolerated. Breathing is even and unlabored. Patient denies chest pain and SOB. Lungs Sounds are clear bilaterally. Bowel Sounds are active in all 4 quadrants. Last bowel Movement was " 02/12/17 at 1000". Skin is intake, warm and dry. All needs met. Safety measures in the place. Call light within reach, bed in the lowest position, and locked, padded bed rails up x2. Will continue to monitor closely.
[2017-02-12 20:00] VITALS: BP 134/97
[2017-02-12] MEDS: DIVALPROEX ER 500 MG TAB.SR.24H PO SCH ×2 (20:17→20:28)
[2017-02-12] MEDS: TRAZODONE 100 MG TABLET PO SCH (21:27)
[2017-02-13] VITALS: BP 115/75
[2017-02-13] MEDS: ACETAMINOPHEN 325 MG TABLET PO PRN (00:15)
--- NOTE | 2017-02-13 00:15 | NUR ---
PRN TYLENOL 650 MG 2 TABS PO ADMINISTRATION Patient c/o severe pain "10/10' of the "left leg" and ask aid. Patient describes pain in his left leg as " extreme, dull, burning, stabbing, cutting, and crushing". Patient was assessed. VS:T:98'1; HR:80; O2Sat: 96%; RR: 18; pain level in the left leg :"10/10". Left leg 's redness and swollen. Skin is intake, warm and dry. Left leg's immobilized and elevated. Ordered Tylenol discussed with patient. Patient's educated for actions, adverse reactions, and side effects of Tylenol. Patient returned back knowledge by verbalized understanding. PRN Tylenol 650 mg PO administrated as ordered with full glass of water. All needs met. Safety measures in the place. Call light within reach, bed in the lowest position, and locked, padded bed rails up x2. Will continue to monitor closely.
--- NOTE | 2017-02-13 01:15 | NUR ---
RE-ASSESSMENT Patient is sleeping. Respirations even and unlabored. RR: 15. PRN Tylenol was effective. . All needs met. Safety measures in the place. Call light within reach, bed in the lowest position, and locked, padded bed rails up x2. Will continue to monitor closely.
[2017-02-13 04:00] VITALS: BP 102/62
--- NOTE | 2017-02-13 07:05 | NUR ---
Start of Shift Endorsement received from nightshift nurse. Pt is a 36 y/o male admitted for alcohol and Ativan dependence. Pt has been placed on a 5 day Ativan taper. PT is tolerating the taper well AEB CIWA 4, Cows 5 at midnight. Pt has completed the taper. PT has been educated on the discharge process. Pt's withdrawal symptoms will be treated by PRN medications. Pt did not receive any PRN medications during nightshift. PT reports sleeping 7 hours during the night. VS WNL. Full Code. PT is alert and oriented x4. Pt is in STABLE condition at this time. Remains compliant with medication and diet regimen. All needs have been met, All safety measures in place per hospital policy. Bed in lowest position, side rails up x2, call-light within reach. Will continue to monitor
--- NOTE | 2017-02-13 07:08 | NUR ---
END OF SHIFT NOTE : Patient endorsed to day shift nurse in stable condition. Patient is a 36 year old male admitted to [facility] on 02/07/17 for Benzodiazepines, ETOH, and Opiate Dependence. Patient is on 5 Day Ativan Taper since 02/08/17, tolerated well. Patient has NKA, is on Regular Diet, and is Full Code status. Patient is on Seizure and Fall Precautions. MRSA isolation since 02/08/17. PMH: HTN, Anxiety, Depression, History of Seizure, Substance Abuse, Left ankle Infusion. Last CIWA 4, COWS 5 at 0400. Patient presented with the following withdrawal symptoms of anxiety, agitation, nervousness, tremors that can be felt, diaphoresis, body aches, and fatigue. VS @ 0400: T: 97'9, HR: 85, BP: 102/62, RA O2Sat: 98%, RR: 16. Respirations even and unlabored. Skin is intact, warm and dry to touch. PRN Tylenol PO 650 mg 2 tabs administrated for left leg pain was effective. Patient remains compliant with treatment plan, medications, and diet regimen. Educated of relaxation skills. Encourage to fluids intake, as tolerated. Encourage to attend activities and therapy groups regularly. Patient slept 7 hours, intake 1,388 ml, voided x2. 3 All needs met. Safety measures in the place. Call light within reach, bed in the lowest position, and locked, padded bed rails up x2.
[2017-02-13 08:00] VITALS: BP 127/80
[2017-02-13] MEDS: FOLIC ACID 1 MG TABLET PO SCH (09:21)
[2017-02-13] MEDS: QUETIAPINE FUMARATE 25 MG TABLET PO SCH ×3 (09:21→17:58)
[2017-02-13] MEDS: DOCUSATE SODIUM 250 MG CAPSULE PO SCH (09:21)
[2017-02-13] MEDS: FLUOXETINE HCL 20 MG CAPSULE PO SCH (09:21)
[2017-02-13] MEDS: GABAPENTIN 300 MG CAPSULE PO SCH ×3 (09:21→20:20)
[2017-02-13] MEDS: THIAMINE HCL 100 MG TABLET PO SCH (09:21)
[2017-02-13] MEDS: MULTIVITAMINS,THERAPEUTIC TABLET PO SCH (09:21)
[2017-02-13] MEDS: MUPIROCIN 2% OINT 22 GM TUBE NS SCH (09:22)
[2017-02-13 12:00] VITALS: BP 132/95
[2017-02-13] MEDS: HYDROXYZINE PAMOATE 25 MG CAPSULE PO PRN (13:18)
--- NOTE | 2017-02-13 13:20 | NUR ---
PRN Vistaril Pt reports experiencing moderate anxiety of 6/10 at this time. Administered PRN Vistaril 50mg.
--- NOTE | 2017-02-13 13:56 | NUR ---
Medication re-assessment Pt reports 2/10 anxiety at this time. Medication was effective.
--- NOTE | 2017-02-13 15:29 | NUR ---
Client encouraged client to attend the next group session today, and therapist reminded client that group times were daily at 11am and 3:30pm. Client stated that he was willing to attend.
[2017-02-13 16:00] VITALS: BP 133/82
--- NOTE | 2017-02-13 18:59 | NUR ---
START OF SHIFT NOTE: Patient endorsed by day shift nurse in stable condition. Report received. Patient is a 36 year old male admitted to [facility] on 02/07/17 for Benzodiazepines, ETOH, and Opiate Dependence. Patient is on 5 Day on 5 Day Ativan Taper since 02/08/17, tolerated well. Patient has NKA, is on Regular Diet, and is Full Code status. Patient is on Seizure and Fall Precautions. PMH: HTN, Anxiety, Depression, History of Seizure r/t withdrawal, Substance Abuse, Left ankle infusion on 2015 with chronic pain. Upon endorsement, patient attended groups activities. Last CIWA 2 at 1600. VS WNL. MRSA for nares isolation continue since 02/08/17. Patient remains compliant with treatment plan, medications, and diet regimen r/t day shift nurse report. Patient will discharging tomorrow, 02/14/17. All needs met. Safety measures in the place. Call light within reach, bed in the lowest position, and locked, padded bed rails up x2. Will continue to monitor closely.
--- NOTE | 2017-02-13 18:59 | NUR ---
End of Shift Endorsement given to nightshift nurse. Pt is a 36 y/o male admitted for alcohol and Ativan dependence. Pt has been placed on a 5 day Ativan taper. PT is tolerating the taper well AEB CIWA 2 at 1600 Pt received PRN Vistaril 50mg for anxiety. PT participated in groups. Pt has been scheduled to be discharge on 02/13/17. Educated pt on discharge process, pt reports readiness for discharge. Educated pt on importance of learning coping methods to help deal with his urges to prevent relapse. Pt is on contact isolation for positive MRSA of nares. Intake: 2780ml, Void 6, BM x2. VS WNL. Full Code. PT is alert and oriented x4. Pt is in STABLE condition at this time. Remains compliant with medication and diet regimen. All needs have been met, All safety measures in place per hospital policy. Bed in lowest position, side rails up x2, call-light within reach. Will continue to monitor
[2017-02-13 20:00] VITALS: BP 126/94
[2017-02-13] MEDS: TRAZODONE 100 MG TABLET PO SCH (20:20)
[2017-02-13] MEDS: IBUPROFEN 600 MG TABLET PO PRN (20:20)
--- NOTE | 2017-02-13 20:20 | NUR ---
PRN MOTRIN PO 600 MG 1 TAB ADMINISTRATION Patient c/o pain "710' of the "left leg" and ask aid. Patient describes pain in his left leg as "burning, stabbing, and crushing". Patient was assessed. Left leg has redness and swollen. Skin is intake, warm and dry. Left leg's immobilized and elevated. Ordered PRN Motrin PO discussed with patient. Patient's educated for actions, adverse reactions, and side effects of Motrin. Patient returned back knowledge by verbalized understanding. PRN Motrin PO 600 mg 1 Tab administrated as ordered with full glass of water. All needs met. Safety measures in the place. Call light within reach, bed in the lowest position, and locked, padded bed rails up x2. Will continue to monitor closely.
[2017-02-13] MEDS ORDERED: DIVALPROEX ER 500 MG TAB.SR.24H PO SCH ×2 (21:00)
[2017-02-13] MEDS ORDERED: DIVALPROEX ER 250 MG TAB.SR.24H PO SCH (21:00)
[2017-02-13 21:05] LABS: *AMPHETAMINE, URINE NEGATIVE (NEGATIVE); *BARBITURATE, URINE NEGATIVE (NEGATIVE); *CANNABINOID, URINE POSITIVE (NEGATIVE); *COCCAINE, URINE NEGATIVE (NEGATIVE); *OPIATE, URINE NEGATIVE (NEGATIVE); *PHENCYCLIDINE SCREEN,URINE NEGATIVE (NEGATIVE)
[2017-02-13] MEDS ORDERED: HYDR-3895 PO (21:17)
[2017-02-13] MEDS ORDERED: GABA-534 PO (21:17)
--- NOTE | 2017-02-13 21:20 | NUR ---
RE-ASSESSMENT Patient is sleeping. Respirations even and unlabored. RR: 16. PRN Motrin PO was effective. All needs met. Safety measures in the place. Call light within reach, bed in the lowest position, and locked, padded bed rails up x2. Will continue to monitor closely.
[2017-02-14] VITALS: BP 135/88
[2017-02-14] MEDS: ACETAMINOPHEN 325 MG TABLET PO PRN (02:35)
[2017-02-14] MEDS: HYDROXYZINE PAMOATE 25 MG CAPSULE PO PRN ×2 (02:35→15:53)
--- NOTE | 2017-02-14 02:35 | NUR ---
PRN TYLENOL 650 MG 2 TABS PO AND PRN VISTARIL PO 50 MG 2 CAPS ADMINISTRATION Patient c/o severe pain "8/10' of the "left leg", increased anxiety, and ask aid. Patient describes pain in his left leg as "burning, stabbing, cutting, and crushing". Patient was assessed. CIWA 5. Patient is anxious, agitated, and nervousness, restlessness, and sweating. Left leg has redness and swollen. Skin is intake, warm and dry. Left leg's immobilized and elevated. Ordered Tylenol and Vistaril discussed with patient. Patient's educated for actions, adverse reactions, and side effects of Tylenol and Vistaril. Patient returned back knowledge by verbalized understanding. PRN Tylenol 650 mg PO and PRN Vistaril PO 50 mg 2 caps. administrated as ordered with full glass of water. All needs met. Safety measures in the place. Call light within reach, bed in the lowest position, and locked, padded bed rails up x2. Will continue to monitor closely.
--- NOTE | 2017-02-14 03:35 | NUR ---
RE-ASSESSMENT Patient is sleeping. Respirations even and unlabored. RR: 15. PRN Tylenol PO and PRN Vistaril PO was effective. All needs met. Safety measures in the place. Call light within reach, bed in the lowest position, and locked, padded bed rails up x2. Will continue to monitor closely.
[2017-02-14 04:00] VITALS: BP 133/104
[2017-02-14] MEDS: METHOCARBAMOL 750 MG TABLET PO PRN (04:22)
[2017-02-14] MEDS: CLONIDINE HCL 0.1 MG TABLET PO PRN ×2 (04:23→15:53)
--- NOTE | 2017-02-14 04:23 | NUR ---
PRN ROBAXIN PO 750 MG 1 TAB AND PRN CATAPRES PO 0.1 MG 1 TAB ADMINISTRATION Patient c/o muscles spasms and ask aid. Patient assessed. VS: T:98'4;BP: 133/104; HR: 95; O2Sat: 100%; RR: 19. PRN Robaxin PO and PRN Clonidine PO discussed with patient. Patient's educated for actions, adverse reactions, and side effects of Robaxin and Clonidine. Patient returned back knowledge by verbalized understanding. PRN Robaxin PO 750 mg 1 tab and PRN Clonidine PO 0.1 mg 1 tab administrated as ordered with full glass of water. All needs met. Safety measures in the place. Call light within reach, bed in the lowest position, and locked, padded bed rails up x2. Will continue to monitor closely.
[2017-02-14 05:23] VITALS: BP 126/83
--- NOTE | 2017-02-14 05:23 | NUR ---
RE-ASSESSMENT PATIENT IS IN THE BED WITH CLOSED EYES. BP:126/83; HR:73; O2SAT:100%; RR:16. PRN CATAPRES PO AND PRN ROBAXIN PO WERE EFFECTIVE. WILL CONTINUE TO MONITOR CLOSELY.
--- NOTE | 2017-02-14 06:54 | NUR ---
END OF SHIFT NOTE : Patient endorsed to day shift nurse in stable condition. Report given. Patient is a 36 year old male admitted to [facility] on 02/07/17 for Benzodiazepines, ETOH, and Opiate Dependence. Patient is completed 5 Day Ativan Taper with tolerated well. Patient remains compliant with treatment plan, medications, and diet regimen. Patient has NKA, is on Regular Diet, and is Full Code status. Patient is on Seizure and Fall Precautions. MRSA of nares isolation since 02/08/17. PMH: HTN, Anxiety, Depression, History of Seizure r/t withdrawal, Substance Abuse, Left ankle infusion with chronic pain. Last CIWA 5, COWS 5 at 0400. Patient presented with anxiety, agitation, nervousness, tremors that can be felt, diaphoresis, body aches, restless legs, and fatigue. VS @ 0523: T: 98'4; BP:126/83; HR:73; O2SAT:100%; RR:16, Pain level "5/10: left leg". Respirations even and unlabored. Skin is intact, warm and dry by touch. PRN Motrin PO, PRN Vistaril PO, PRN Clonidine PO, PRN Robaxin PO, PRN Tylenol PO administrated during night baker were effective. Patient slept 2 hours, intake 592 ml, voided x 2. Patient will discharging today, 02/14/17. UDS Test results placed in the chart. All needs met. Safety measures in the place. Call light within reach, bed in the lowest position, and locked, padded bed rails up x2. Will continue to monitor closely.
--- NOTE | 2017-02-14 07:05 | NUR ---
Start of Shift Endorsement received from nightshift nurse. Pt is a 36 y/o male admitted for alcohol and Ativan dependence. Pt has been placed on a 5 day Ativan taper. PT is tolerating the taper well AEB CIWA 5 at 0400. Pt has completed the taper. Pt is expected to be discharged today. All documentation has been completed. PT has been educated on the discharge process. Pt's withdrawal symptoms will be treated by PRN medications. Pt received PRN Vistaril, Motrin, Tylenol, Robaxin and clonidine. PT reports sleeping 6 hours during the night. Pt reports readiness for discharge. VS WNL. Full Code. PT is alert and oriented x4. Pt is in STABLE condition at this time. Remains compliant with medication and diet regimen. All needs have been met, All safety measures in place per hospital policy. Bed in lowest position, side rails up x2, call-light within reach. Will continue to monitor
[2017-02-14 08:00] VITALS: BP 106/66
[2017-02-14] MEDS: QUETIAPINE FUMARATE 25 MG TABLET PO SCH ×3 (08:46→16:11)
[2017-02-14] MEDS: GABAPENTIN 300 MG CAPSULE PO SCH ×2 (08:46→14:44)
[2017-02-14] MEDS: FOLIC ACID 1 MG TABLET PO SCH (08:46)
[2017-02-14] MEDS: MULTIVITAMINS,THERAPEUTIC TABLET PO SCH (08:47)
[2017-02-14] MEDS: THIAMINE HCL 100 MG TABLET PO SCH (08:47)
[2017-02-14] MEDS: DOCUSATE SODIUM 250 MG CAPSULE PO SCH (08:47)
[2017-02-14] MEDS ORDERED: FLUOXETINE HCL 20 MG CAPSULE PO SCH (09:00)
[2017-02-14 12:00] VITALS: BP 114/81
[2017-02-14 15:53] VITALS: BP 133/82
--- NOTE | 2017-02-14 15:53 | NUR ---
PRN Medications PT reports 6/10 anxiety and Increased HR of 110. Administered Clonidine and Vistaril
--- NOTE | 2017-02-14 16:20 | NUR ---
Medication Re-assessment Pt reports relief from anxiety, rates it 2/10 and HR down to 89. Medication was effective.
--- NOTE | 2017-02-14 16:25 | NUR ---
Discharge note PT has been discharged from [facility]. PT is in Stable condition, VS WNL. Denies suicidal and homicidal ideations at this time. . All documentation has been completed, paperwork signed and dated. Pt left with all of her belongings, medications and prescriptions. Pt has been discharged from [facility] on 02/14/17 at 1625. has been Notified
== END 2017-02-14 16:25 | DRG 895 ==
LOC: SRC 12:51
PROVIDERS: ADMIT Internal Medicine; ATTEND Internal Medicine
PROC: HZ2ZZZZ Detoxification Services for Substance Abuse Treatment (ICD-10-PCS; principal; 2017-02-07)
PROC: HZ31ZZZ Individual Counseling for Substance Abuse Treatment, Behavioral (ICD-10-PCS; 2017-02-08)
PROC: HZ41ZZZ Group Counseling for Substance Abuse Treatment, Behavioral (ICD-10-PCS; 2017-02-09)
DX: F10.230 Alcohol dependence with withdrawal, uncomplicated (principal); F11.20 Opioid dependence, uncomplicated; F13.120 Sedative, hypnotic or anxiolytic abuse with intoxication, uncomplicated; Y90.9 Presence of alcohol in blood, level not specified; Z86.74 Personal history of sudden cardiac arrest; Z91.89 Other specified personal risk factors, not elsewhere classified; Z59.0 Homelessness; F32.9 Major depressive disorder, single episode, unspecified; G47.00 Insomnia, unspecified; F17.210 Nicotine dependence, cigarettes, uncomplicated; F41.9 Anxiety disorder, unspecified; Z76.5 Malingerer [conscious simulation]; S82.145D Nondisplaced bicondylar fracture of left tibia, subsequent encounter for closed fracture with routine healing; X58.XXXD Exposure to other specified factors, subsequent encounter; F43.10 Post-traumatic stress disorder, unspecified; F12.90 Cannabis use, unspecified, uncomplicated; Z22.322 Carrier or suspected carrier of Methicillin resistant Staphylococcus aureus; F15.90 Other stimulant use, unspecified, uncomplicated
CPT/HCPCS: 70030-TC; 71010; 73562; 80307; 80346; 80349; 86580; 97161; A4663; J3411; Q0162; Q0163

== ENCOUNTER 2017-05-20 01:03 | Emergency (ER) | payer BC, OTHER ==
[~2017-05-20] VITALS: Ht 182.9 cm; Wt 106.1 kg
[~2017-05-20 01:03] MED LIST changes: -ACET-2605 PO; +BACL20TA PO; -Baclofen PO; +CALC-860 PO; -CALC-880 PO; -CLON0.1T14 PO; +CYCL10TA9 PO; -DICY20TA28 PO; +DOCU-141 PO; +GABA-534 PO; -GABA100C PO; -Gabapentin PO; -IBUP-1482 PO; +IBUP-1957 PO; -Ibuprofen PO; -METH28OI2 TOP; +METH28OI2 TP; -OMEG-8 PO; +OMEG1CAP74 PO
--- NOTE | 2017-05-20 01:30 | NUR ---
DR RIBERA AT BEDSIDE FOR MSE.
[2017-05-20] MEDS ORDERED: KETOROLAC TROMETHAMINE 30 MG INJ IM ONE (01:45)
[2017-05-20] MEDS ORDERED: KETOROLAC TROMETHAMINE 30 MG INJ ONE (01:49)
--- NOTE | 2017-05-20 01:49 | NUR ---
Patient discharged to home in stable conditon. Written and verbal after care instructions given. Patient verbalizes understanding of instructions. PATIENT LEFT WITH STABLE GAIT.
[2017-05-20 01:50] VITALS: BP 112/53
== END 2017-05-20 01:50 | disposition home or self-care (01) ==
LOC: ER 01:03
DX: S93.402A Sprain of unspecified ligament of left ankle, initial encounter (principal); Z76.5 Malingerer [conscious simulation]; Y08.89XA Assault by other specified means, initial encounter; Y93.89 Activity, other specified; Y92.9 Unspecified place or not applicable; Y99.9 Unspecified external cause status
CPT/HCPCS: 96372; 99283; A4663; J1885

== ENCOUNTER 2018-09-27 03:35 | Emergency (ER) | payer BC, MEDICAID, OTHER ==
[~2018-09-27] VITALS: Ht 182.9 cm; Wt 90.7 kg
[~2018-09-27 03:35] MED LIST changes: +NAPR-1009 PO; -NAPR500T3 PO; -TRAZ-147 PO; +TRAZ-214 PO
[2018-09-27] MEDS ORDERED: LORAZEPAM 2 MG/1 ML VIAL IV ONE (04:00)
[2018-09-27] MEDS ORDERED: IV NORMAL SALINE 1000 ML BAG IV ONE (04:00)
[2018-09-27] MEDS ORDERED: LORAZEPAM 2 MG/1 ML VIAL ONE (04:13)
[2018-09-27] MEDS ORDERED: ONDANSETRON IV *ER 4 MG/2 ML VIAL IV ONE (04:15)
[2018-09-27] MEDS ORDERED: ONDANSETRON ODT 4 MG TAB.RAPDIS ONE (04:29)
[2018-09-27] MEDS ORDERED: ONDANSETRON ODT 4 MG TAB.RAPDIS SL ONE (04:30)
[2018-09-27] MEDS ORDERED: LORAZEPAM 0.5 MG TABLET PO ONE (04:30)
[2018-09-27 04:46] LABS: *BLOOD, URINE Trace-lysed (NEGATIVE); *CLARITY,URINE CLEAR (CLEAR); *COLOR,URINE DARK YELLOW (YELLOW); *KETONES,URINE 1+ (NEGATIVE); LEUKOCYTE ESTERASE ,URINE NEGATIVE (NEGATIVE); NITRITE, URINE NEGATIVE (NEGATIVE); UGLUCOSE NEGATIVE (NEGATIVE)
[2018-09-27] MEDS ORDERED: LORAZEPAM 0.5 MG TABLET ONE (04:46)
[2018-09-27 04:50] LABS: *BILIRUBIN,URIN 1+ (NEGATIVE)
[2018-09-27 05:03] LABS: *AMPHETAMINE, URINE NEGATIVE (NEGATIVE); *BARBITURATE, URINE NEGATIVE (NEGATIVE); *CANNABINOID, URINE POSITIVE (NEGATIVE); *COCCAINE, URINE NEGATIVE (NEGATIVE); *OPIATE, URINE NEGATIVE (NEGATIVE); *PHENCYCLIDINE SCREEN,URINE NEGATIVE (NEGATIVE)
[2018-09-27 05:05] LABS: BACTERIA,URINE NONE SEEN /HPF (NONE SEEN); MUCUS,URINE FEW /LPF (0-FEW); RBC,URINE 0-3 /HPF (0-3); SQUAMOUS EPITHELIAL CELL,UR FEW /HPF (NONE SEEN); WBC,URINE 0-3 /HPF (0-3)
[2018-09-27 05:05] LABS: BASOPHILS % (AUTO) 0.5 % (0.0-2.0); EOSINOPHILS % (AUTO) 0.3 % (0.0-7.0); HEMATOCRIT 38.7 % (36.7-47.1); HEMOGLOBIN 13.7 g/dL (12.5-16.3); LYMPHOCYTES # (AUTO) 0.8 K/uL (20.0-40.0); LYMPHOCYTES % (AUTO) 12.4 % (20.5-51.5); MEAN CORPUSCULAR HGB CONC 36 g/dL (32.5-36.3); MEAN CORPUSCULAR VOLUME 90.3 fL (73.0-96.2); MONOCYTES # (AUTO) 0.9 K/uL (2.0-10.0); MONOCYTES % (AUTO) 13.8 % (0.0-11.0); NEUTROPHILS # (AUTO) 4.8 K/uL (1.8-8.9); PLATELET COUNT (AUTO) 199 K/uL (152-348); RED BLOOD CELL COUNT(AUTO) 4.29 MIL/uL (4.06-5.63); WHITE BLOOD COUNT (AUTO) 6.6 K/uL (3.6-10.2)
[2018-09-27] MEDS ORDERED: BENZTROPINE MESYLATE 2 MG/2 ML AMPUL ONE (05:10)
[2018-09-27] MEDS ORDERED: METOCLOPRAMIDE HCL 10 MG/2 ML VIAL ONE (05:10)
[2018-09-27] MEDS ORDERED: BENZTROPINE MESYLATE 2 MG/2 ML AMPUL IM ONE (05:15)
[2018-09-27] MEDS ORDERED: METOCLOPRAMIDE HCL 10 MG/2 ML VIAL IM ONE (05:15)
[2018-09-27 05:23] LABS: CARBON DIOXIDE 29 mmol/L (21-32); CHLORIDE 104 mmol/L (98-107); CREATININE 1.2 mg/dL (0.6-1.3); GLUCOSE 92 mg/dL (74-106); POTASSIUM 4.8 mmol/L (3.5-5.1); UREA NITROGEN, BLOOD 10 mg/dL (7-18)
[2018-09-27 05:34] LABS: ETHANOL 75 MG/DL (0-0)
[2018-09-27 05:37] LABS: THYROID STIMULATING HORMONE 2.065 mIU/mL (0.358-3.740)
[2018-09-27 05:38] LABS: ALANINE AMINOTRANSFERASE 136 U/L (16-63); ALKALINE PHOSPHATASE 64 U/L (50-136); ASPARTATE AMINOTRANSFERASE 91 U/L (15-37); BILIRUBIN,DIRECT 0.3 mg/dL (0.0-0.2); BILIRUBIN,TOTAL 0.9 mg/dL (0.2-1.0); TOTAL PROTEIN, SERUM 7.2 g/dL (6.4-8.2)
[2018-09-27 05:39] LABS: ACETAMINOPHEN < 2.0 ug/mL (10-30); VALPROIC ACID < 3 ug/mL (50-100)
[2018-09-27] MEDS ORDERED: LIDOCAINE HCL 1% 20 ML VIAL ONE (05:45)
[2018-09-27] MEDS ORDERED: CEFTRIAXONE 500 MG VIAL ONE (05:45)
[2018-09-27] MEDS ORDERED: AZITHROMYCIN 250 MG TABLET ONE (05:45)
[2018-09-27] MEDS ORDERED: CEFTRIAXONE 500 MG VIAL IM ONE (05:45)
[2018-09-27] MEDS ORDERED: LAMIVUDINE/ZIDOVUDIN 150-300MG TABLET PO ONE (05:45)
[2018-09-27] MEDS ORDERED: AZITHROMYCIN 250 MG TABLET PO ONE (05:45)
[2018-09-27] MEDS ORDERED: LAMIVUDINE/ZIDOVUDIN 150-300MG TABLET ONE (05:45)
--- NOTE | 2018-09-27 06:25 | NUR ---
Patient is resting comfortably in bed with eyes closed
--- NOTE | 2018-09-27 06:56 | NUR ---
Patient discharged to home in stable conditon. Written and verbal after care instructions given. Patient verbalizes understanding of instructions.
== END 2018-09-27 06:57 | disposition home or self-care (01) ==
LOC: ER 03:37
DX: F10.239 Alcohol dependence with withdrawal, unspecified (principal); F19.90 Other psychoactive substance use, unspecified, uncomplicated; Z20.2 Contact with and (suspected) exposure to infections with a predominantly sexual mode of transmission; Z79.899 Other long term (current) drug therapy; Z79.1 Long term (current) use of non-steroidal anti-inflammatories (NSAID); Z79.891 Long term (current) use of opiate analgesic; Y90.3 Blood alcohol level of 60-79 mg/100 ml
CPT/HCPCS: 36415; 71045; 80048; 80076; 80164; 80307; 81001; 83735; 84443; 85025; 93005; 96372 ×3; 99284; G0480 ×2; G0481; J0515; J0696; J2060; J2765; J3490; A4663; J7030; Q0144; Q0162